=== PATIENT | male | born 1955 | race Caucasian/White ===

== ENCOUNTER 2017-03-07 18:54 | Emergency (ER) | payer OTHER ==
[2017-03-07 19:02] VITALS: BP 126/74
[2017-03-07] MEDS ORDERED: Lidocaine 1% INJ* 10 MG/ML 30 ML SDV ONE (20:26)
--- NOTE | 2017-03-07 20:54 | ED ---
Laceration/Wound HPI - HPI Summary HPI Summary: 61M presents with laceration to right index finger today. He cut it on a box sorter. He placed steristrips on the area and drove 5 hours up here to his home. He denies any numbness or tingling. He has full ROM of his fingers. He is right handed. His tetanus is up to date he believes. - History of Current Complaint Stated Complaint: RT HAND LAC Time Seen by Provider: 03/07/17 19:06 Pain Intensity: 4 - Allergy/Home Medications Allergies/Adverse Reactions: Allergies Allergy/AdvReac Type Severity Reaction Status Date / Time No Known Allergies Allergy Verified 03/07/17 19:02 PMH/Surg Hx/FS Hx/Imm Hx Endocrine/Hematology History: Denies: Hx Anticoagulant Therapy, Hx Diabetes Cardiovascular History: Reports: Hx Hypertension - Immunization History Date of Tetanus Vaccine: Pt unsure of date Infectious Disease History: No Infectious Disease History: Denies: Traveled Outside the [place] in Last 30 Days - Family History Known Family History: Positive: Hypertension - Social History Alcohol Use: Occasionally Substance Use Type: Reports: None Smoking Status (MU): Never Smoked Tobacco Review of Systems Negative: Fever Negative: Chest Pain Negative: Shortness Of Breath Positive: Other - laceration right hand All Other Systems Reviewed And Are Negative: Yes Physical Exam Triage Information Reviewed: Yes Vital Signs On Initial Exam: Initial Vitals Temp Pulse Resp BP Pulse Ox 98.1 F 66 14 126/74 98 03/07/17 18:59 03/07/17 18:59 03/07/17 18:59 03/07/17 18:59 03/07/17 18:59 Vital Signs Reviewed: Yes Appearance: Positive: Well-Appearing Skin: Positive: Warm, Dry, Other - 4cm by 1/2cm on knuckle of right hand Head/Face: Positive: Normal Head/Face Inspection Eyes: Positive: Normal, Conjunctiva Clear ENT: Positive: Normal ENT inspection, Pharynx normal, TMs normal Respiratory/Lung Sounds: Positive: Clear to Auscultation, Breath Sounds Present Cardiovascular: Positive: Normal, RRR Musculoskeletal: Positive: Strength/ROM Intact - right hand, Other - good pulses , capillary refill<2secs Procedures - Laceration/Wound Repair 1 Location: Other - right hand Description: Linear Anesthesia: Local, 1.0% Length, Depth and Shape: 3cm by 1/4cm Betadine Prep?: Yes Irrigated w/ Saline (ccs): 500 Laceration/Wound Explored: clean, no foreign body removed Closure: Single Layer Suture Type: Prolene - 4-0 Number of Sutures: 4 Layer Closure?: No Sterile Dressing Applied?: Yes - placed neosporin, telfa and asya wrap Diagnostics - Vital Signs Vital Signs Temp Pulse Resp BP Pulse Ox 03/07/17 18:59 98.1 F 66 14 126/74 98 - Laboratory Lab Statement: Any lab studies that have been ordered have been reviewed, and results considered in the medical decision making process. Laceration Repair Course/Dx - Course Course Of Treatment: 61M presents with laceration to right index finger today. He cut it on a box sorter. He placed steristrips on the area and drove 5 hours up here to his home. He denies any numbness or tingling. He has full ROM of his fingers. He is right handed. His tetanus is up to date he believes. placed 4 sutures in area. patient understands and agrees with plan. - Differential Dx Differental Diagnoses: Abrasion, Avulsion, Laceration - Clinical Impression Provider Diagnoses: Laceration of right hand Discharge - Discharge Plan Condition: Good Disposition: HOME Patient Education Materials: Care For Your Stitches (ED) Referrals: No Primary Care Phys,NOPCP [Primary Care Provider] - Additional Instructions: Keep area on ASYA for next 3 days at least Keep area clean and dry for 24 hours, do not soak area Take Tylenol or ibuprofen for pain every 6 hours Return to ED or primary for suture removal in 10-14 days Return to ED if develop signs of infection such as fever, spreading redness, or pus formation
== END 2017-03-07 21:10 | disposition home or self-care (01) ==
LOC: ED 18:54
DX: S61.210A Laceration without foreign body of right index finger without damage to nail, initial encounter (principal); W26.0XXA Contact with knife, initial encounter; Y93.9 Activity, unspecified; Y92.9 Unspecified place or not applicable
CPT/HCPCS: 12002; 99282; J2001